=== PATIENT | male | born 1960 | race Caucasian/White ===

== ENCOUNTER 2016-08-15 08:02 | Observation (INO) | payer OTHER ==
[2016-08-15] MEDS ORDERED: NITROGLYCERIN OINT 1 INCH/GM PACKET TOPICAL STA (08:11)
[2016-08-15] MEDS ORDERED: ASPIRIN 81 MG CHEW PO STA (08:11)
[2016-08-15] MEDS ORDERED: SODIUM CHLORIDE 0.9% 500 ML IV STA (08:11)
--- NOTE | 2016-08-15 08:16 | ED ---
General Adult HPI - General Stated complaint: chest pain Time Seen by Provider: 08/15/16 08:02 Source: RN notes reviewed - History of Present Illness Initial comments: This is a 55-year-old male who presents to the emergency department complaining of chest pain today. Patient states started at 7:00 this morning lasted for half an hour. Patient states it was right in the center of his chest is mildly short of breath. Patient denies any diaphoresis or nausea. Patient denies any radiation of the pain. Patient states he went away completely. Patient states a couple weeks ago had the same symptoms lasting about a half an hour and they went away so he never came in. Patient states he has also noticed lately that he has been much more fatigued and on Saturday he was so fatigued he could barely even sweep up some ashes around his fire. 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 Patient also complains of right calf pain and some bumps on the posterior aspect of his calf. Patient states it 's a little bigger than normal as well. Patient denies any abdominal pain patient denies any vomiting or diarrhea. Patient denies any recent fever chills or cough. Patient denies any smoking history. Patient denies any history of diabetes hypertension or high cholesterol. Patient states his father at 66 years old did have a heart attack. Patient denies headache patient denies numbness weakness. Patient denies any lightheadedness dizziness or near syncopal episode. - Related Data Home Medications Medication Instructions Recorded Confirmed No Known Home Medications [No 08/15/16 08/15/16 Known Home Medications] Allergies Allergy/AdvReac Type Severity Reaction Status Date / Time Penicillins Allergy Unknown Verified 08/15/16 09:11 black pepper AdvReac Makes Verified 08/15/16 09:11 psoriasis flare up Pork/Porcine Containing AdvReac Makes Verified 08/15/16 09:11 Products psoriasis [Pork] flare up sweet potato AdvReac Makes Verified 08/15/16 09:11 psoriasis flare up tomato AdvReac Makes Verified 08/15/16 09:11 psoriasis flare up Bouillon AdvReac bouillon Uncoded 08/15/16 09:11 Review of Systems ROS Statement: Those systems with pertinent positive or pertinent negative responses have been documented in the HPI. ROS Other: All systems not noted in ROS Statement are negative. General Exam - General Exam Comments Initial Comments: GENERAL: Patient is well-developed and well-nourished. Patient is nontoxic and well- hydrated and is in no acute distress. ENT: Neck is soft and supple. No significant lymphadenopathy is noted. Oropharynx is clear. Moist mucous membranes. Neck has full range of motion without eliciting any pain. There is no thyroid enlargement and no masses were felt. EYES: The sclera were anicteric and conjunctiva were pink and moist. Extraocular movements were intact and pupils were equal round and reactive to light. Eyelids were unremarkable. PULMONARY: Unlabored respirations. Good breath sounds bilaterally. No audible rales rhonchi or wheezing was noted. CARDIOVASCULAR: There is a regular rate and rhythm without any murmurs gallops or rubs. ABDOMEN: Soft and nontender with normal bowel sounds. No palpable organomegaly was noted. There is no palpable pulsatile mass. SKIN: Skin is clear with no lesions or rashes and otherwise unremarkable. NEUROLOGIC: Patient is alert and oriented x3. Cranial nerves II through XII are grossly intact. Motor and sensory are also intact. Normal speech, volume and content. Symmetrical smile. MUSCULOSKELETAL: Normal extremities with adequate strength and full range of motion. Right calf is larger than the left tender posteriorly and there does appear to be a palpable cord in the posterior aspect of his calf. LYMPHATICS: No significant lymphadenopathy is noted PSYCHIATRIC: Normal psychiatric evaluation. Normal interpersonal interactions appears functionally intact in deals appropriately with others. No signs of depression. Patient is mildly anxious Course Vital Signs 08/15/16 08/15/16 08/15/16 08:18 09:22 10:19 Temperature 97.7 F Pulse Rate 57 L 62 72 Respiratory 16 18 18 Rate Blood Pressure 130/81 102/67 115/78 O2 Sat by Pulse 98 99 99 Oximetry Medical Decision Making - Medical Decision Making EKG shows normal sinus rhythm at 61 bpm AL interval is 132 QRS is 98 QT interval is 402 QTC is 404. His EKG shows no ST segment elevation or depression or T wave abnormalities are noted. Patient's chest x-ray shows no acute abnormality. Because of the patient's elevated d-dimer I did a CT of the patient's chest that showed no PE. I started patient on heparin because of the unstable angina. I admitted the patient I spoke with Dr. Leone he agreed to the admission I wrote admitting orders and consult cardiology and continue the heparin and aspirin Nitropaste on the floor. - Lab Data Result diagrams: 08/15/16 08:32 08/15/16 08:32 Lab Results 08/15/16 08/15/16 08/15/16 Range/Units 08:32 08:32 08:32 WBC 5.5 (3.8-10.6) k/uL RBC 4.90 (4.30-5.90) m/uL Hgb 14.9 (13.0-17.5) gm/dL Hct 44.6 (39.0-53.0) % MCV 91.0 (80.0-100.0) fL MCH 30.3 (25.0-35.0) pg MCHC 33.3 (31.0-37.0) g/dL RDW 13.2 (11.5-15.5) % Plt Count 236 (150-450) k/uL Neutrophils % 60 % Lymphocytes % 23 % Monocytes % 9 % Eosinophils % 3 % Basophils % 1 % Neutrophils # 3.3 (1.3-7.7) k/uL Lymphocytes # 1.3 (1.0-4.8) k/uL Monocytes # 0.5 (0-1.0) k/uL Eosinophils # 0.2 (0-0.7) k/uL Basophils # 0.0 (0-0.2) k/uL PT (9.0-12.0) sec INR (<1.1) APTT (22.0-30.0) sec D-Dimer (<0.60) mg/L FEU Sodium 141 (137-145) mmol/L Potassium 4.2 (3.5-5.1) mmol/L Chloride 107 (98-107) mmol/L Carbon Dioxide 25 (22-30) mmol/L Anion Gap 9 mmol/L BUN 16 (9-20) mg/dL Creatinine 0.86 (0.66-1.25) mg/dL Est GFR (MDRD) Af Amer >60 (>60 ml/min/1.73 sqM) Est GFR (MDRD) Non-Af >60 (>60 ml/min/1.73 sqM) Glucose 105 H (74-99) mg/dL Calcium 9.5 (8.4-10.2) mg/dL Magnesium 2.0 (1.6-2.3) mg/dL Total Bilirubin 1.4 H (0.2-1.3) mg/dL AST 39 (17-59) U/L ALT 45 (21-72) U/L Alkaline Phosphatase 53 (38-126) U/L Total Creatine Kinase 286 H (55-170) U/L CK-MB (CK-2) 2.0 (0.0-2.4) ng/mL CK-MB (CK-2) Rel Index 0.7 Troponin I <0.012 (0.000-0.034) ng/mL NT-Pro-B Natriuret Pep pg/mL Total Protein 7.5 (6.3-8.2) g/dL Albumin 4.4 (3.5-5.0) g/dL 08/15/16 08/15/16 Range/Units 08:32 08:32 WBC (3.8-10.6) k/uL RBC (4.30-5.90) m/uL Hgb (13.0-17.5) gm/dL Hct (39.0-53.0) % MCV (80.0-100.0) fL MCH (25.0-35.0) pg MCHC (31.0-37.0) g/dL RDW (11.5-15.5) % Plt Count (150-450) k/uL Neutrophils % % Lymphocytes % % Monocytes % % Eosinophils % % Basophils % % Neutrophils # (1.3-7.7) k/uL Lymphocytes # (1.0-4.8) k/uL Monocytes # (0-1.0) k/uL Eosinophils # (0-0.7) k/uL Basophils # (0-0.2) k/uL PT 10.6 (9.0-12.0) sec INR 1.1 (<1.1) APTT 24.2 (22.0-30.0) sec D-Dimer 2.03 H (<0.60) mg/L FEU Sodium (137-145) mmol/L Potassium (3.5-5.1) mmol/L Chloride (98-107) mmol/L Carbon Dioxide (22-30) mmol/L Anion Gap mmol/L BUN (9-20) mg/dL Creatinine (0.66-1.25) mg/dL Est GFR (MDRD) Af Amer (>60 ml/min/1.73 sqM) Est GFR (MDRD) Non-Af (>60 ml/min/1.73 sqM) Glucose (74-99) mg/dL Calcium (8.4-10.2) mg/dL Magnesium (1.6-2.3) mg/dL Total Bilirubin (0.2-1.3) mg/dL AST (17-59) U/L ALT (21-72) U/L Alkaline Phosphatase (38-126) U/L Total Creatine Kinase (55-170) U/L CK-MB (CK-2) (0.0-2.4) ng/mL CK-MB (CK-2) Rel Index Troponin I (0.000-0.034) ng/mL NT-Pro-B Natriuret Pep 39 pg/mL Total Protein (6.3-8.2) g/dL Albumin (3.5-5.0) g/dL Critical Care Time Critical Care Time: Yes Total Critical Care Time: 35 Disposition Clinical Impression: Unstable angina pectoris Disposition: ADMITTED IP TO THIS HOSP Referrals: Alivia Koenig MD [Primary Care Provider] - 1-2 days Time of Disposition: 11:13
[2016-08-15 08:48] LABS: Basophils % (A) 1 %; CH 30.5; CHCM 33.6; Eosinophils # (A) 0.2 k/uL (0-0.7); Eosinophils % (A) 3 %; HCT 44.6 % (39.0-53.0); HGB 14.9 gm/dL (13.0-17.5); Luc # (Auto) 0.18; Luc % (Auto) 3; Lymphocytes # (A) 1.3 k/uL (1.0-4.8); Lymphocytes % (A) 23 %; MCH 30.3 pg (25.0-35.0); MCHC 33.3 g/dL (31.0-37.0); Mean Platelet Volume 7.2; Monocytes # (A) 0.5 k/uL (0-1.0); Monocytes % (A) 9 %; Neutrophils # (A) 3.3 k/uL (1.3-7.7); Neutrophils % (A) 60 %; RDW 13.2 % (11.5-15.5); WBC 5.5 k/uL (3.8-10.6); WBC (Perox) 5.22
--- NOTE | 2016-08-15 08:55 | XR ---
EXAMINATION TYPE: XR chest 2V DATE OF EXAM: 08/15/2016 COMPARISON: NONE HISTORY: Chest pain and shortness of breath. TECHNIQUE: Frontal and lateral views of the chest are obtained. FINDINGS: There is no focal air space opacity, pleural effusion, or pneumothorax seen. The cardiac silhouette size is within normal limits. The osseous structures are intact. IMPRESSION: No acute cardiopulmonary process.
[2016-08-15 08:58] LABS: ALT 45 U/L (21-72); AST 39 U/L (17-59); Alkaline Phosphatase 53 U/L (38-126); Anion Gap 9 mmol/L; Blood Urea Nitrogen 16 mg/dL (9-20); Calcium 9.5 mg/dL (8.4-10.2); Carbon Dioxide 25 mmol/L (22-30); Chloride 107 mmol/L (98-107); Glucose 105 mg/dL (74-99); Non-African American GFR(MDRD) >60 (>60 ml/min/1.73 sqM); Potassium 4.2 mmol/L (3.5-5.1); Sodium 141 mmol/L (137-145); Total Bilirubin 1.4 mg/dL (0.2-1.3); Total Protein 7.5 g/dL (6.3-8.2)
[2016-08-15 09:03] LABS: INR 1.1 (<1.1); Partial Thromboplastin Time 24.2 sec (22.0-30.0); Prothrombin Time 10.6 sec (9.0-12.0)
[2016-08-15 09:11] LABS: Creatine Kinase 286 U/L (55-170)
[2016-08-15 09:24] LABS: Troponin I <0.012 ng/mL (0.000-0.034)
--- NOTE | 2016-08-15 09:27 | US ---
EXAMINATION TYPE: US venous doppler duplex LE RT DATE OF EXAM: 08/15/2016 9:07 AM COMPARISON: NONE CLINICAL HISTORY: Pain. harde, red area posterior calf SIDE PERFORMED: right TECHNIQUE: The lower extremity deep venous system is examined utilizing real time linear array sonog enoch with graded compression, doppler sonography and color-flow sonography. VESSELS IMAGED: External Iliac Vein (EIV) Common Femoral Vein Deep Femoral Vein Greater Saphenous Vein * Femoral Vein Popliteal Vein Small Saphenous Vein * Proximal Calf Veins (* superficial vessels) Grayscale, color doppler, spectral doppler imaging performed of the deep veins of the lower extremiti es. There is normal flow, compressibility, vascular waveforms bilaterally. Right Leg: Negative for DVT Hardened area of posterior calf scanned; non compressible varicosity identified. IMPRESSION: No ultrasound evidence for acute DVT in the right lower extremity. Suspected superfici al vein thrombus at level posterior calf with noncompressible tubular shaped structure.
[2016-08-15] MEDS ORDERED: RX INFO: IV CONTRAST WAS GIVEN 1 EACH MISC MISCELLANE PRN (09:30)
--- NOTE | 2016-08-15 10:29 | CT ---
CT CHEST FOR PULMONARY EMBOLISM. EXAMINATION TYPE: CT chest angio for PE DATE OF EXAM: 08/15/2016 INDICATION: Mid chest pain CT DLP: 335.9 mGycm, Automated exposure control for dose reduction was used. CONTRAST: Patient injected with 100 mL of Omnipaque 350. COMPARISON: NONE TECHNIQUE: CT of the chest is performed on a spiral scan at 2 mm thick sections. Study is performed with intravenous contrast timed for evaluation for pulmonary embolism. This will limit additional po rtions of the evaluation. 3-D MIP images reconstructed by the technologist are reviewed on the compu ter in the coronal and sagittal planes. Contrast opacification is suboptimal but appears to be diagno stic. FINDINGS: No persistent filling defects are evident to suggest an acute pulmonary embolism. No mediastinal or hilar adenopathy enlarged by CT criteria is evident. The ascending aorta diameter at the level of the main pulmonary artery is 3.4 cm. The main pulmonary artery diameter at the bifur cation is 2.7 cm. There is a 0.3 cm containing density in the anterior peripheral right middle lobe. Series 5 image 79. This could be a tiny granuloma. Limited CT section through the upper abdomen are unremarkable. IMPRESSIONS: 1. No acute pulmonary embolism.
[2016-08-15] MEDS ORDERED: HEPARIN SODIUM,PORCINE 5,000 UNIT/ML 1 ML VIAL IV ONE (10:45)
[2016-08-15] MEDS ORDERED: NITROGLYCERIN SL TABS 0.4 MG TAB SUBLINGUAL PRN (11:13)
[2016-08-15] MEDS: HEPARIN SODIUM,PORCINE/D5W PMX 25,000 UNIT in DEXTROSE/WATER 1 500ML.BAG IV SCH (11:22)
[2016-08-15 15:09] LABS: Creatine Kinase 209 U/L (55-170)
[2016-08-15 15:21] LABS: Creatine Kinase MB 1.4 ng/mL (0.0-2.4); Troponin I <0.012 ng/mL (0.000-0.034)
[2016-08-15] MEDS: NITROGLYCERIN OINT 1 INCH/GM PACKET TOPICAL SCH ×2 (15:23→18:57)
--- NOTE | 2016-08-15 17:47 | CONS ---
DATE OF CONSULTATION: 08/15/2016 Jordin is a 55-year-old gentleman with no significant past medical history who comes to the hospital complaining of some shortness of breath and chest discomfort. He has a varicose vein that is inflamed over the right leg. He underwent a CT scan of the chest because of elevated D-dimer, and that came back negative. EKG does not reveal acute ischemic changes. At the time of my evaluation, 2 sets of his cardiac enzymes are negative. Past medical history is negative for hypertension, diabetes, dyslipidemia. MEDICATIONS: None. ALLERGIES: 1. PENICILLIN. 2. BLACK PEPPER. 3. TOMATO. 4. BOUILLON. FAMILY HISTORY: Negative for premature coronary artery disease. SOCIAL HISTORY: Negative for current smoking, ETOH abuse or drug abuse. REVIEW OF SYSTEMS: HEENT: Unremarkable. CARDIAC: As described above. RESPIRATORY: Negative. GI: Negative. GENITOURINARY: Negative. ALLERGY/IMMUNOLOGY: Negative. SKIN: Negative. MUSCULOSKELETAL: Significant for arthritis. PSYCHOSOCIAL: Negative. ENDOCRINE: Negative. DERMATOLOGY: Negative. CONSTITUTIONAL: Negative. ONCOLOGICAL: Negative. Rest of the systems review is not relevant. On exam, comfortable at rest. Oxygen saturation is 99% on room air. Afebrile. Vital signs are stable. There is no jugular venous distention. Carotid upstroke is normal. There is no bruit. Chest exam reveals good air entry bilaterally. Heart exam reveals first and second heart sounds. No gallop. Abdomen is soft, nontender. Examination of extremities did not reveal any edema. Peripheral pulses are felt. ASSESSMENT: 1. Chest pain, atypical. 2. Inflamed varicose vein of the right leg. PLAN: I am going to schedule him for an echocardiogram and dobutamine echo tomorrow.
[2016-08-15 21:47] LABS: Creatine Kinase 195 U/L (55-170)
[2016-08-15 21:58] LABS: Creatine Kinase MB 1.5 ng/mL (0.0-2.4); Troponin I <0.012 ng/mL (0.000-0.034)
[2016-08-16] MEDS: NITROGLYCERIN OINT 1 INCH/GM PACKET TOPICAL SCH ×3 (01:24→12:54)
[2016-08-16 03:49] LABS: Cholesterol 162 mg/dL (<200); HDL Cholesterol 88 mg/dL (40-60); Triglycerides 53 mg/dL (<150)
--- NOTE | 2016-08-16 08:29 | PN ---
A 55-year-old gentleman who was admitted to the hospital with chest pain and ruled out for myocardial infarction. This morning he is doing well and is free of symptoms. His lipid show that the LDL cholesterol is 63. On exam, his vital signs are stable. The rest of his exam is benign and unchanged from yesterday. ASSESSMENT: Atypical chest pain, myocardial infarction is ruled out. PLAN: Patient will continue with current medical therapy and will be followed up in my office in the outpatient setting.
[2016-08-16] MEDS ORDERED: ASPIRIN 325 MG TAB PO SCH (09:00)
[2016-08-16] MEDS ORDERED: DOBUTamine DRIP for NUC MED 500 MG in DEXTROSE/WATER 1 250ML.BAG IV ONE (09:00)
--- NOTE | 2016-08-16 09:40 | ECHOF ---
Referral Reason: MEASUREMENTS -------- HEIGHT: 175.3 cm WEIGHT: 89.4 kg BP: 103/65 RVIDd: 2.9 cm (< 3.3) IVSd: 1.0 cm (0.6 - 1.1) LVIDd: 4.7 cm (3.9 - 5.3) LVPWd: 0.9 cm (0.6 - 1.1) IVSs: 1.3 cm LVIDs: 3.4 cm LVPWs: 1.3 cm LAESV Index (A-L): 17.04 ml/m Ao Diam: 3.5 cm (2.0 - 3.7) AV Cusp: 1.7 cm (1.5 - 2.6) LA Diam: 3.4 cm (2.7 - 3.8) MV EXCURSION: 19.783 mm (> 18.000) MV EF SLOPE: 181 mm/s (70 - 150) EPSS: 0.7 cm MV E Andrzej: 0.80 m/s MV DecT: 219 ms MV A Andrzej: 0.82 m/s MV E/A Ratio: 0.97 RAP: 5.00 mmHg RVSP: 9.56 mmHg FINDINGS -------- Sinus rhythm. This was a technically good study. LV size, wall thickness and systolic function are normal, with an EF greater than 55%. Overall left ventricular systolic function is normal with, an EF between 55 - 60 %. The right ventricle is normal in size and function. Normal LA size by volume 22+/-6 ml/m2. The right atrium is normal in size. The aortic valve is trileaflet, and appears structurally normal. No aortic stenosis or regurgitation. The mitral valve leaflets are mildly thickened. No mitral regurgitation. Trace tricuspid regurgitation present. There is no evidence of pulmonary hypertension. The right ventricular systolic pressure, as measured by Doppler, is 9.56mmHg. The pulmonic valve was not well visualized. The aortic root size is normal. Normal inferior vena cava with normal inspiratory collapse consistent with estimated right atrial pressure of 5 mmHg. The pericardium is normal. There is no pericardial effusion. CONCLUSIONS -------- 1. Sinus rhythm. 2. The pulmonic valve was not well visualized. 3. The aortic root size is normal. 4. There is no pericardial effusion. 5. Overall left ventricular systolic function is normal with, an EF between 55 - 60 %. 6. Normal LA size by volume 22+/-6 ml/m2. 7. The aortic valve is trileaflet, and appears structurally normal. No aortic stenosis or regurgitation. 8. The mitral valve leaflets are mildly thickened. 9. No mitral regurgitation. 10. Trace tricuspid regurgitation present. 11. There is no evidence of pulmonary hypertension. 12. The right ventricular systolic pressure, as measured by Doppler, is 9.56mmHg. [employer] HAND: Raymon Pemberton RDCS
[2016-08-16] MEDS ORDERED: ATROPINE SULFATE 0.1 MG/ML 10ML SYRINGE ONE (11:44)
[2016-08-16] MEDS ORDERED: METOPROLOL TARTRATE 5 MG/5 ML VIAL IVP ONE (11:44)
[2016-08-16 12:29] VITALS: BP 112/79; PULSE 90; RESP 18; TEMP 97.6
[2016-08-16] MEDS: HEPARIN SODIUM,PORCINE/D5W PMX 25,000 UNIT in DEXTROSE/WATER 1 500ML.BAG IV SCH (12:39)
--- NOTE | 2016-08-16 12:42 | ECHOS ---
DATE OF SERVICE: 08/16/2016 AGE: 55Y SEX: M HT: 70 WT: 197 lbs. Protocol Nahun: Others: Dobutamine Stress Echo Stage: Dur. of Exercise: *Heart Rate Blood Pressure *Rest: 67 Rest: 114/58 * *Max. Achieved: 160 Maximum BP: 160/58 85% PMHR: 140 100% PMHR: 165 *METS: INDICATION OF THE STUDY: Chest pain. MEDICATIONS: STRESS DATA: Pretesting physical examination showed a heart rate of 67, pressure is 114/58 mmHg. Baseline EKG showed sinus rhythm. Dobutamine infusion at a dose 10 mcg/kg per minute was initiated and increased to 20 mcg/kg per minute. We gave the patient 1 mg of atropine to enhance the heart rate. The patient achieved a max heart rate of 160, which is about 97% of maximum predicted heart rate. Maximum blood pressure was 160/58 mmHg. Clinically, the patient did not have any symptoms of chest pain or discomfort during the testing or during recovery. The EKG did not show any significant ST or T wave abnormalities consistent with ischemia. ECHOCARDIOGRAM IMAGES: On echocardiogram images from parasternal long axis view, parasternal short axis view, apical 4 chamber and apical 2 chamber view were obtained as the baseline images, at low-dose dobutamine infusion, at peak heart rate, as well as on recovery. The echocardiogram images showed overall good augmentation in the left ventricular systolic function without any evidence of wall motion abnormalities consistent with ischemia. CONCLUSION: 1. Normal EKG in response to dobutamine. 2. Normal echocardiogram in response to dobutamine as well.
--- NOTE | 2016-08-16 13:16 | P.HPIM ---
History of Present Illness H&P Date: 08/16/16 Chief Complaint: Chest discomfort This is a 55-year-old gentleman with no significant past medical history who presented to the emergency room with worsening chest discomfort and shortness of breath. Patient said that his symptoms started suddenly and were not associated with exertion. He was evaluated in the emergency room in 12 leads EKG showed no acute ischemic changes. Serial troponin were negative 3 sets. D -dimer was elevated but computed tomography angiography of the chest showed no evidence of PE. Patient was placed on observation was seen and evaluated by cardiology. He underwent a dobutamine stress test that was negative. Patient was reassured. He would be discharged home in a stable condition. He will follow-up with his primary care physician as directed Review of Systems Review of system: 14 points review of systems were obtained and were negative except to what were mentioned in the HPI. Past Medical History Past Medical History: Chest Pain / Angina Additional Past Medical History / Comment(s): Recent upper respiratory tract infection with antibiotics, pt states over past year has had lower energy level and the past few days very little energy-easily fatigues, he also states he has gained 20 pounds over the past year and has had problems with losing his thoughts and sometimes loses his words, past R radius fracture-casted/healed. History of Any Multi-Drug Resistant Organisms: None Reported Past Surgical History: Orthopedic Surgery Additional Past Surgical History / Comment(s): left knee meniscus repair x 2 Past Anesthesia/Blood Transfusion Reactions: No Reported Reaction Past Psychological History: No Psychological Hx Reported Additional Psychological History / Comment(s): Pt resides with his spouse. He is independent. Smoking Status: Never smoker Past Alcohol Use History: Occasional Past Drug Use History: None Reported - Past Family History Father Family Medical History: Myocardial Infarction (NH) Additional Family Medical History / Comment(s): Father had a NH at the age of 66yrs. Mother Family Medical History: Cancer, Diabetes Mellitus Additional Family Medical History / Comment(s): Mother had breast cancer. Medications and Allergies Home Medications Medication Instructions Recorded Confirmed Type No Known Home Medications [No 08/15/16 08/15/16 History Known Home Medications] Allergies Allergy/AdvReac Type Severity Reaction Status Date / Time Penicillins Allergy Unknown Verified 08/15/16 09:11 black pepper AdvReac Makes Verified 08/15/16 09:11 psoriasis flare up Pork/Porcine Containing AdvReac Makes Verified 08/15/16 09:11 Products psoriasis [Pork] flare up sweet potato AdvReac Makes Verified 08/15/16 09:11 psoriasis flare up tomato AdvReac Makes Verified 08/15/16 09:11 psoriasis flare up Bouillon AdvReac bouillon Uncoded 08/15/16 09:11 Physical Exam Vitals: Vital Signs Temp Pulse Pulse Resp BP Pulse Ox 08/16/16 12:00 97.6 F 90 65 18 112/79 98 08/16/16 08:00 65 16 08/16/16 07:52 98.0 F 65 16 113/79 97 08/16/16 04:00 97.7 F 53 L 18 111/59 95 08/16/16 00:00 59 L 16 08/15/16 23:30 97.5 F L 67 16 100/57 96 08/15/16 20:00 65 16 08/15/16 19:35 97.7 F 67 16 113/71 95 08/15/16 16:00 98.0 F 70 16 96/70 99 Intake and Output 08/15/16 08/16/16 08/16/16 22:59 06:59 14:59 Intake Total 200 Balance 200 Intake: Oral 200 Other: Voiding Method Toilet Toilet Toilet # Voids 1 1 3 General: The patient is awake and alert, in no distress Eye: there is normal conjunctiva bilaterally. Neck: The neck is supple, there is no JVD. Cardiovascular: Normal S1-S2, no S3-S4, no murmurs. Respiratory: Lungs clear to auscultation bilaterally Gastrointestinal: Abdomen is soft, nontender Musculoskeletal: There is no pedal edema. Neurological:. Speech is normal. Skin: Skin is warm and dry Results CBC & Chem 7: 08/15/16 08:32 08/15/16 08:32 Labs: Abnormal Lab Results - Last 24 Hours (Table) 08/15/16 08/15/16 08/15/16 Range/Units 08:32 14:10 17:40 APTT 40.7 H (22.0-30.0) sec Total Creatine Kinase 209 H (55-170) U/L HDL Cholesterol 88 H (40-60) mg/dL 08/15/16 Range/Units 20:37 APTT (22.0-30.0) sec Total Creatine Kinase 195 H (55-170) U/L HDL Cholesterol (40-60) mg/dL Thrombosis Risk Factor Assmnt - Choose All That Apply Any of the Below Risk Factors Present?: Yes Each Factor Represents 1 point: Age 41-60 years, Obesity (BMI >25) Other Risk Factors: No Other congenital or acquired thrombophilia - If yes, enter type in comment: No Thrombosis Risk Factor Assessment Total Risk Factor Score: 2 Thrombosis Risk Factor Assessment Level: Low Risk Assessment and Plan Plan: This is a 55-year-old gentleman with no significant past medical history who presented to the emergency room with worsening chest discomfort and shortness of breath. Patient said that his symptoms started suddenly and were not associated with exertion. He was evaluated in the emergency room in 12 leads EKG showed no acute ischemic changes. Serial troponin were negative 3 sets. D -dimer was elevated but computed tomography angiography of the chest showed no evidence of PE. Patient was placed on observation was seen and evaluated by cardiology. He underwent a dobutamine stress test that was negative. Patient was reassured. He would be discharged home in a stable condition. He will follow-up with his primary care physician as directed
--- NOTE | 2016-08-16 13:17 | P.DS ---
Providers Date of admission: 08/15/16 11:23 Expected date of discharge: 08/16/16 Attending physician: Alex Florez Consults: 08/15/16 11:15 Consult Physician Urgent Consulting Provider: [facility] Consult Reason/Comments: Unstable angina Do you want consulting provider notified?: Yes Primary care physician: Alivai Koenig [facility] Course: This is a 55-year-old gentleman with no significant past medical history who presented to the emergency room with worsening chest discomfort and shortness of breath. Patient said that his symptoms started suddenly and were not associated with exertion. He was evaluated in the emergency room in 12 leads EKG showed no acute ischemic changes. Serial troponin were negative 3 sets. D -dimer was elevated but computed tomography angiography of the chest showed no evidence of PE. Patient was placed on observation was seen and evaluated by cardiology. He underwent a dobutamine stress test that was negative. Patient was reassured. He would be discharged home in a stable condition. He will follow-up with his primary care physician as directed Plan - Discharge Summary New Discharge Prescriptions: No Action No Known Home Medications [No Known Home Medications] Discharge Medication List No Known Home Medications [No Known Home Medications] 08/15/16 [History] Follow up Appointment(s)/Referral(s): Alivia Koenig MD [Primary Care Provider] - 1-2 days Everett Will MD [STAFF PHYSICIAN] - 6 Weeks Discharge Disposition: HOME SELF-CARE
== END 2016-08-16 14:15 | disposition home or self-care (01) ==
LOC: EC 08:02 → 3OBS 11:23
PROVIDERS: ADMIT Internal Medicine; ATTEND Internal Medicine
DX: I20.0 Unstable angina (principal); I83.11 Varicose veins of right lower extremity with inflammation; Z82.49 Family history of ischemic heart disease and other diseases of the circulatory system; Z91.02 Food additives allergy status; Z88.0 Allergy status to penicillin; Z91.018 Allergy to other foods
CPT/HCPCS: 96365; 96366; 96376; 96361; 99291; 36415; 93005; 93017; 93306; 93350; 85379; 83880; 80061; 80053; 82550; 82553; 83735; 84484; 85025; 85610; 85730; 71020; 93971; 71275; G0378 ×2; J1250; J1644 ×2; Q9967; J0461

== ENCOUNTER 2017-07-03 17:28 | Emergency (ER) | payer BC, MEDICARE ==
[2017-07-03 18:18] VITALS: RESP 18
--- NOTE | 2017-07-03 19:17 | US ---
EXAMINATION TYPE: US venous doppler duplex LE RT DATE OF EXAM: 07/03/2017 7:01 PM COMPARISON: Prior right lower extremity venous ultrasound August 15, 2016 CLINICAL HISTORY: Pain. Right leg pain hx of blood clot not on blood thinners stopped in April. SIDE PERFORMED: Right TECHNIQUE: The lower extremity deep venous system is examined utilizing real time linear array sonog enoch with graded compression, doppler sonography and color-flow sonography. VESSELS IMAGED: External Iliac Vein (EIV) Common Femoral Vein Deep Femoral Vein Greater Saphenous Vein * Femoral Vein Popliteal Vein Small Saphenous Vein * Proximal Calf Veins (* superficial vessels) Right Leg: Positive for DVT Grayscale, color doppler, spectral doppler imaging performed of the deep veins of the right lower ex tremity. There is normal flow, compressibility, vascular waveforms above the popliteal vein. Beginn ing at the proximal popliteal vein level there is heterogeneous hyperechoic material expanding the mounika men with no color flow and noncompressibility through the distal popliteal vein into the posterior ca lf veins. IMPRESSION: New occlusive acute DVT in the right lower extremity beginning at the proximal popliteal vein level extending distally.
[2017-07-03] MEDS ORDERED: RIVAROXABAN 15 MG TAB PO STA (19:42)
[2017-07-03 19:47] VITALS: BP 125/83; PULSE 86; TEMP 97.4
--- NOTE | 2017-07-03 19:47 | ED ---
General Adult HPI - General Chief complaint: Extremity Problem,Nontraumatic Stated complaint: POSS BLOODCLOT IN RT LEG Time Seen by Provider: 07/03/17 19:30 Source: patient, RN notes reviewed Mode of arrival: wheelchair Limitations: no limitations - History of Present Illness Initial comments: Patient 56-year-old male presenting to the emergency room today with a chief complaint of increased pain swelling locally to the right calf. Patient denies any injury or trauma. He does admit to a history of a DVT. States he was on strong toe for DVT. He states that his wallet was discontinued after 3 months which he last took in April of this year. Patient states that he has had increased pain swelling to the right calf. States worse with ambulation and dorsiflexion. Patient denies any recent fever, chills, shortness of breath, chest pain, back pain, abdominal pain, nausea or vomiting, numbness or tingling , headaches or visual changes, or any other complaints. - Related Data Previous Rx's Medication Instructions Recorded Rivaroxaban [Xarelto] 15 mg PO BID #42 tab 07/03/17 Allergies Allergy/AdvReac Type Severity Reaction Status Date / Time Penicillins Allergy Unknown Verified 07/03/17 18:13 black pepper AdvReac Makes Verified 07/03/17 18:13 psoriasis flare up Pork/Porcine Containing AdvReac Makes Verified 07/03/17 18:13 Products psoriasis [Pork] flare up sweet potato AdvReac Makes Verified 07/03/17 18:13 psoriasis flare up tomato AdvReac Makes Verified 07/03/17 18:13 psoriasis flare up Bouillon AdvReac bouillon Uncoded 07/03/17 18:13 Review of Systems ROS Statement: Those systems with pertinent positive or pertinent negative responses have been documented in the HPI. ROS Other: All systems not noted in ROS Statement are negative. Past Medical History Past Medical History: Chest Pain / Angina, Deep Vein Thrombosis (DVT) Additional Past Medical History / Comment(s): Recent upper respiratory tract infection with antibiotics, pt states over past year has had lower energy level and the past few days very little energy-easily fatigues, he also states he has gained 20 pounds over the past year and has had problems with losing his thoughts and sometimes loses his words, past R radius fracture-casted/healed. History of Any Multi-Drug Resistant Organisms: None Reported Past Surgical History: Orthopedic Surgery Additional Past Surgical History / Comment(s): left knee meniscus repair x 2 Past Anesthesia/Blood Transfusion Reactions: No Reported Reaction Past Psychological History: No Psychological Hx Reported Smoking Status: Never smoker Past Alcohol Use History: Occasional Past Drug Use History: None Reported - Past Family History Father Family Medical History: Myocardial Infarction ([place]) Additional Family Medical History / Comment(s): Father had a [place] at the age of 66yrs. Mother Family Medical History: Cancer, Diabetes Mellitus Additional Family Medical History / Comment(s): Mother had breast cancer. General Exam - General Exam Comments Initial Comments: General: The patient is awake and alert, in no distress, and does not appear acutely ill. Neck: The neck is supple, there is no tenderness or JVD. Cardiovascular: There is a regular rate and rhythm. No murmur, rub or gallop is appreciated. Respiratory: Lungs are clear to auscultation, respirations are non-labored, breath sounds are equal. No wheezes, stridor, rales, or rhonchi. Musculoskeletal: Patient does have moderate swelling to the right lower extremity. No redness no erythema. Tender to palpation posterior calf with dorsiflexion. Sensation intact. Pulses 2+ bilaterally. Neurological: A&O x 3. CN II-XII intact, There are no obvious motor or sensory deficits. Coordination appears grossly intact. Speech is normal. Skin: Skin is warm and dry and no rashes or lesions are noted. Psychiatric: Normal mood and affect. Limitations: no limitations Course Vital Signs 07/03/17 18:13 Temperature 97.7 F Pulse Rate 79 Respiratory 18 Rate Blood Pressure 120/75 O2 Sat by Pulse 96 Oximetry Medical Decision Making - Medical Decision Making Patient's ultrasound reviewed shows positive DVT beginning at the proximal popliteal vein level there is a heterogeneous hyperechoic material expanding the lumen with no color flow and not compressibility to the distal popliteal vein into the posterior calf pains. Case discussed in detail with attending physician Dr. Lundberg. Vital stable. No shortness of breath. Patient will be given first dose of Cymbalta here in emergency room discharged home with a prescription for Xarelto 15 mg twice a day for 21 days. He is advised follow- up the family doctor for further prescription. Disposition Clinical Impression: DVT (deep venous thrombosis) Disposition: HOME SELF-CARE Condition: Good Instructions: Deep Venous Thrombosis (ED) Additional Instructions: Please use medication as discussed. Please follow-up with family doctor in the next 2 days. Please return to emergency room if the symptoms increase or worsen or for any other concerns. Prescriptions: Rivaroxaban [Xarelto] 15 mg PO BID #42 tab Is patient prescribed a controlled substance at discharge?: No Referrals: Alivia Koenig MD [Primary Care Provider] - 1-2 days Time of Disposition: 19:46
== END 2017-07-03 20:07 | disposition home or self-care (01) ==
LOC: EC 17:28
DX: I82.431 Acute embolism and thrombosis of right popliteal vein (principal); Z88.0 Allergy status to penicillin; Z91.018 Allergy to other foods
CPT/HCPCS: 99283